=== PATIENT | male | born 2000 | race Caucasian/White ===

== ENCOUNTER 2021-10-21 15:26 | Inpatient (IN) ==
[2021-10-21 16:02] LABS: Basophils # (auto) 0.03 K/uL (0-0.2); Basophils % (auto) 0.4 %; Eosinophils # (auto) 0.05 K/uL (0-0.5); Eosinophils % (auto) 0.6 %; Hematocrit (blood only) 39.6 % (42-52); Hemoglobin 13.7 g/dL (14.0-18.0); Immature Granulocytes # (auto) 0.02 K/uL (0.00-0.02); Immature Granulocytes % (auto) 0.2 %; Lymphocytes # (auto) 1.88 K/uL (1.2-3.4); Mean Corpuscular Hemoglobin 30.4 pg (25-34); Mean Corpuscular Hgb Conc 34.6 g/dL (32-36); Mean Platelet Volume 9.9 fL (7.4-10.4); Monocytes # (auto) 0.53 K/uL (0.11-0.59); Monocytes % (auto) 6.5 %; Neutrophils # (auto) 5.68 K/uL (1.4-6.5); Neutrophils % (auto) 69.3 %; Platelet Count 268 K/uL (130-400); RDW Coefficient of Variation 11.8 % (11.5-14.5); RDW Standard Deviation 37.6 fL (36.4-46.3); White Blood Count 8.19 K/uL (4.8-10.8)
--- NOTE | 2021-10-21 16:23 | XRay Report ---
SINGLE VIEW CHEST CLINICAL HISTORY: Atypical chest pain. FINDINGS: 2 AP, portable, upright chest radiographs are obtained. No prior studies are available for comparison at the time of dictation. The cardiomediastinal silhouette is unremarkable. The lungs and pleural spaces are clear. There is a moderate right-sided pneumothorax with approximately 5 cm of ap ical pleural separation. No left-sided pneumothorax is seen. The trachea is midline. The bony thorax is grossly intact. IMPRESSION: Moderate right apical pneumothorax. ACT 112: Negative or not required by law. Electronically signed by: Fabricio Keenan M.D. 10/21/2021 4:20 PM
[2021-10-21 16:24] LABS: Troponin I High Sensitivity < 2.3 pg/ml (0-20)
[2021-10-21 16:30] LABS: Alanine Aminotransferase 16 U/L (7-52); Albumin Level 4.8 gm/dl (3.4-5.0); Alkaline Phosphatase 51 U/L (34-104); Anion Gap 8 (3-11); Aspartate Aminotransferase 19 U/L (13-39); BUN Creatinine Ratio 9.3 (10-20); Bilirubin,Total 0.7 mg/dl (0.2-1.0); Blood Urea Nitrogen 9 mg/dl (6-23); Calcium 9.3 mg/dl (8.5-10.1); Carbon Dioxide 26 mmol/L (21-32); Chloride 100 mmol/L (98-107); Creatinine Clr Calc Pharmacy 116.7 ml/min; Est GFR (African American) 129.7 ml/min; Est GFR (Non-African American) 111.9 ml/min; Globulin 2.4 gm/dl (2.5-4.0); Glucose 92 mg/dl (70-99(Fasting)); Lipase 19 U/L (11-82); Potassium 3.2 mmol/L (3.5-5.1); Sodium 134 mmol/L (136-145); Total Protein 7.2 gm/dl (6.0-8.3)
--- NOTE | 2021-10-21 16:53 | Emergency Department Note ---
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 Chest x-ray obtained prior to my initial evaluation I was done in triage shows evidence of a moderate-sized right-sided apical pneumothorax. On my initial assessment here in the ED the patient is saturating well on room air, he is hemodynamically stable, he admits to some very mild left-sided chest discomfort with some shortness of breath but otherwise appears nontoxic on my initial evaluation. ROS: -Pulmonary: Shortness of breath *10 point review systems was conducted and is otherwise negative unless stated above *Outpatient medications and allergy history reviewed PE: General: Alert, NAD, slender build HEENT: Normocephalic, atraumatic Eyes: Extraocular eye movement is intact, no scleral erythema Pulmonary: Diminished breath sounds on the right side without wheezing or crackles Cardio: Regular rate and rhythm GI: Abdomen is soft, nontender : No suprapubic tenderness MSK: No evidence of trauma or malformation of the extremities, no edema Skin: No evidence of rash Neuro: Alert, no focal deficits Psychiatric: Cooperative quality assurance monitor body: - An order was placed for continuous cardiac monitoring - Patient was noted to be in sinus rhythm with rate of 80 EKG: Rate: 78 Rhythm: Normal sinus rhythm Intervals: Within normal limits ST changes: No ST elevation Time: 1534 Chest tube placement: -Written consent was obtained at the bedside following discussion of risk/ benefit of procedure with the patient. -Patient was sterilely prepped and draped at the bedside using chlorhexidine at the 2-3rd IC space of the midclavicular line of the right chest. -Local anesthesia was applied with 2% lidocaine without epinephrine. -Small incision was made with a #11 blade, Thora vent catheter with trocar was advanced at the second/third intercostal space at the midclavicular line of the right chest until release of air achieved with upward movement of the red diaphragm. -Catheter was advanced over the trocar, trocar was removed, Thora vent device was sealed to the patient's chest wall. -Follow-up chest x-ray shows appropriate positioning of Thora vent in addition t o improvement in the size of the pneumothorax. -Patient was noted to have had a vagal type event with an episode of vomiting during the procedure, he was given a fluid bolus, he had hypotension in the 80s systolic however this improved with fluid bolus as did his nausea, patient otherwise tolerated the procedure well. Patient remained otherwise hemodynamically stable on the monitor in the hours following the procedure here in the ED while awaiting admission. Medical Decision Making: Patient presented to the emergency department with a spontaneous pneumothorax that developed earlier today. Chest x-ray shows moderate right-sided pneumothorax on arrival here to the ED. Suspect he had a ruptured bleb. Lab work is otherwise reassuring as is EKG. I discussed with on-call pulmonology, Dr. Hammond, recommended placing a Thora vent chest tube/catheter in the patient and obtaining CT imaging with overnight admission for observation and he will see the patient in the morning. I discussed this with the patient, given the size of pneumothorax I do think it is reasonable to place a Thora vent to prevent development of potential tension pneumothorax. Patient expressed an agreement understanding, signed consent for the procedure to be performed. Procedure was performed at the bedside, please see procedure note for details. Patient did have a vagal type event without losing consciousness during the procedure. An episode of vomiting, he was given IV fluids and following a dos santos sient episode of hypotension into the 80s his blood pressure did improve. He otherwise tolerated the procedure without issue. Follow-up chest x-ray shows good resolution of right-sided pneumothorax. Patient remained hemodynamically stable here in the ED otherwise, chest CT imaging was obtained that shows appropriate placement of the Thora vent catheter. Patient Thora vent/chest tube was placed to waterseal at the recommendation of pulmonology following our discussion given that there was resolution of the pneumothorax, and case was discussed with the inspector outside steam distribution hospitalist for [facility], Dr. Valdez, who accepted the patient to a monitored bed for further care and pulmonology consultation. Diagnosis: 1. Spontaneous pneumothorax, right-sided 2. Shortness of breath 3. Right-sided chest pain, acute 4. Nausea and vomiting, vasovagal event Disposition: Admission Олег Cam DO Emergency Medicine Past Med/Surg History Social History Smoking Status: Never smoker Feels Safe at Home: Yes Allergies Allergies Allergy/AdvReac Type Severity Reaction Status Date / Time amoxicillin Allergy Intermediate HIVES Verified 10/21/21 18:27 AN pollen extracts Allergy Intermediate ITCHY Verified 10/21/21 18:27 EYES, SNEEZING, CONGESTION Home Meds Home Medications Medication Instructions Recorded Confirmed estradiol 2 mg tablet 2 mg PO HS 10/21/21 10/21/21 fexofenadine 180 mg tablet 180 mg PO DAILY 10/21/21 10/21/21 spironolactone 100 mg tablet 100 mg PO HS 10/21/21 10/21/21 Results & Data (ED) Vital Signs Vital Signs - 24 hr 10/21/21 15:29 10/21/21 16:42 10/21/21 17:11 Temperature 36.6 C Temperature Source Temporal Artery Scan Pulse Rate 86 67 Respiratory Rate 18 18 Blood Pressure 140/91 138/86 Blood Pressure Mean 107 103 Pulse Oximetry 97 99 98 Oxygen Delivery Method Room Air Room Air Sepsis Recent Fever Within 48 Hours No Sepsis New/Unexplained Change in Mental Status No Sepsis Action Taken by Nursing No Action Required 10/21/21 18:00 10/21/21 18:30 10/21/21 19:00 Temperature Temperature Source Pulse Rate 78 77 81 Respiratory Rate 15 23 24 Blood Pressure 132/84 126/87 129/90 Blood Pressure Mean 100 100 103 Pulse Oximetry 100 99 100 Oxygen Delivery Method Sepsis Recent Fever Within 48 Hours Sepsis New/Unexplained Change in Mental Status Sepsis Action Taken by Nursing 10/21/21 20:00 Temperature Temperature Source Pulse Rate 106 H Respiratory Rate 21 Blood Pressure 135/99 Blood Pressure Mean 111 Pulse Oximetry 94 Oxygen Delivery Method Sepsis Recent Fever Within 48 Hours Sepsis New/Unexplained Change in Mental Status Sepsis Action Taken by Nursing Laboratory Data Result diagrams: 10/21/21 15:41 10/21/21 15:41 Lab Results 10/21/21 10/21/21 10/21/21 Range/Units 15:41 15:41 18:41 WBC 8.19 (4.8-10.8) K/uL RBC 4.50 L (4.7-6.1) M/uL Hgb 13.7 L (14.0-18.0) g/dL Hct 39.6 L (42-52) % MCV 88.0 (80-100) fL MCH 30.4 (25-34) pg MCHC 34.6 (32-36) g/dL RDW Std Deviation 37.6 (36.4-46.3) fL RDW Coeff of Kayy 11.8 (11.5-14.5) % Plt Count 268 (130-400) K/uL MPV 9.9 (7.4-10.4) fL Immature Gran % (Auto) 0.2 % Neut % (Auto) 69.3 % Lymph % (Auto) 23.0 % [place] % (Auto) 6.5 % Eos % (Auto) 0.6 % Baso % (Auto) 0.4 % Neut # (Auto) 5.68 (1.4-6.5) K/uL Lymph # (Auto) 1.88 (1.2-3.4) K/uL [place] # (Auto) 0.53 (0.11-0.59) K/uL Eos # (Auto) 0.05 (0-0.5) K/uL Baso # (Auto) 0.03 (0-0.2) K/uL Immature Gran # (Auto) 0.02 (0.00-0.02) K/uL Sodium 134 L (136-145) mmol/L Potassium 3.2 L (3.5-5.1) mmol/L Chloride 100 (98-107) mmol/L Carbon Dioxide 26 (21-32) mmol/L Anion Gap 8 (3-11) BUN 9 (6-23) mg/dl Creatinine 0.97 (0.6-1.4) mg/dl Est Cr Clr Drug Dosing 116.7 ml/min Est GFR ( Amer) 129.7 ml/min Est GFR (Non-Af Amer) 111.9 ml/min BUN/Creatinine Ratio 9.3 L (10-20) Glucose 92 (70-99(Fasting)) mg/dl Calcium 9.3 (8.5-10.1) mg/dl Total Bilirubin 0.7 (0.2-1.0) mg/dl AST 19 (13-39) U/L ALT 16 (7-52) U/L Alkaline Phosphatase 51 (34-104) U/L Troponin I High Sens < 2.3 (0-20) pg/ml Total Protein 7.2 (6.0-8.3) gm/dl Albumin 4.8 (3.4-5.0) gm/dl Globulin 2.4 L (2.5-4.0) gm/dl Albumin/Globulin Ratio 2.0 (0.9-2) Lipase 19 (11-82) U/L SARS-CoV-2, RNA, NAAT NEGATIVE (NEGATIVE) Administered Medications Discontinued Medications Sodium Chloride (Nss 1000ml) 1,000 mls @ 999 mls/hr IV .Q1H1M ONE Stop: 10/21/21 19:00 Last Infusion: 10/21/21 19:49 Dose: 0 mls/hr Documented by: [id number] Admin: 10/21/21 18:46 Dose: 999 mls/hr Documented by: [id number] Lidocaine HCl (Lidocaine 2% Local 50 Ml Vial) Confirm Administered Dose 50 ml .ROUTE .STK-MED ONE Stop: 10/21/21 17:01 Last Admin: 10/21/21 17:09 Dose: 50 ml Documented by: [id number] Morphine Sulfate (Morphine Sulfate 2 Mg/Ml Carp) 2 mg IV NOW STA Stop: 10/21/21 18:01 Last Admin: 10/21/21 18:46 Dose: 2 mg Documented by: [id number] Ondansetron HCl (Ondansetron Inj 2 Mg/Ml 2 Ml Vial) 4 mg IV NOW STA Stop: 10/21/21 18:01 Last Admin: 10/21/21 18:46 Dose: 4 mg Documented by: [id number] Imaging Data Radiologist's Impression: Chest X-Ray 10/21/21 15:32 SINGLE VIEW CHEST CLINICAL HISTORY: Atypical chest pain. FINDINGS: 2 AP, portable, upright chest radiographs are obtained. No prior studies are available for comparison at the time of dictation. The cardiomediastinal silhouette is unremarkable. The lungs and pleural spaces are clear. There is a moderate right-sided pneumothorax with approximately 5 cm of apical pleural separation. No left-sided pneumothorax is seen. The trachea is midline. The bony thorax is grossly intact. IMPRESSION: Moderate right apical pneumothorax. ACT 112: Negative or not required by law. Electronically signed by: Fabricio Keenan M.D. 10/21/2021 4:20 PM Chest X-Ray 10/21/21 17:46 SINGLE VIEW CHEST CLINICAL HISTORY: Pneumothorax status post chest tube placement FINDINGS: An AP, portable, upright chest radiograph is compared to study performed earlier the same day 10/22/2019. The cardiomediastinal silhouette is unremarkable. A right-sided chest tube has been placed. There is only trace residual right apical pneumothorax with 5 mm of apical pleural separation. The lungs are otherwise clear. The bony thorax is grossly intact. IMPRESSION: 1. A right-sided chest tube has been placed with only trace residual right apical pneumothorax. 2. The lungs are otherwise clear. ACT 112: Negative or not required by law. Electronically signed by: Fabricio Keenan M.D. 10/21/2021 5:[address] 10/21/21 17:50 CT SCAN OF THE CHEST WITHOUT IV CONTRAST CLINICAL HISTORY: Pneumothorax. COMPARISON STUDY: Chest x-rays performed the same day 10/21/2021. TECHNIQUE: CT scan of the thorax was performed from the thoracic inlet to the upper abdomen. Images are reviewed in the axial, sagittal, and coronal planes. IV contrast was not administered for this examination as per the referring clinician. A dose lowering technique was utilized adhering to the principles of ALARA. The examination is degraded by streak artifact from the right arm which could not be related above the chest. CT DOSE: 228.88 mGy.cm FINDINGS: Thyroid: Imaged portions of the thyroid gland are normal in size and attenuation. Thoracic aorta: The thoracic aorta is normal in caliber and demonstrates standard 3-vessel arch anatomy. Heart: The heart is normal in size and without pericardial effusion. Lungs and pleural spaces: A chest tube enters anteriorly between the right first and second ribs. The tip is located in the lateral pleural space in the right upper lobe. There is a small residual right atypical to basilar pneumothorax there is trace right pleural effusion and dependent atelectasis. Numerous tiny blebs are present at both apices. These measure up to 1 cm. The left lung is clear with no left-sided pneumothorax. The trachea and central airways are patent. Mediastinum: There is no mediastinal lymphadenopathy. Patricia: Not well assessed without IV contrast. Axillae: There is no axillary lymphadenopathy. Upper abdomen: Partially visualized upper abdominal viscera is within normal limits. Skeletal structures: No lytic or blastic bony lesions are seen. IMPRESSION: 1. There is a small residual right apical to basilar pneumothorax with a chest tube in place as above. 2. Numerous tiny blebs are present at both apices. 3. Trace right pleural effusion. 4. The lungs are otherwise clear. ACT 112: Negative or not required by law. Electronically signed by: Fabricio Keenan M.D. 10/21/2021 8:08 PM Discharge Plan Visit Data Chief Complaint: Shortness of Breath/Dyspnea Stated Complaint: SHORTNESS OF BREATH, CAN'T TAKE DEEP BREATH ED Provider: Олег Cam Discharge Problem: Pneumothorax Forms Stand Alone Forms: [facility] Prescriptions Prescriptions: No Action spironolactone 100 mg tablet 100 mg PO HS RF: 0 fexofenadine [Simin] 180 mg Tablet 180 mg PO DAILY RF: 0 estradiol 2 mg tablet 2 mg PO HS RF: 0 Referrals Referrals: PCP,NO [Primary Care Provider] - Discharge Problem: Pneumothorax Qualifiers: Pneumothorax type: spontaneous, primary Qualified Code(s): J93.11 - Primary spontaneous pneumothorax
[2021-10-21] MEDS ORDERED: LIDOCAINE 2% LOCAL 50 ML VIAL ONE (17:00)
[2021-10-21] MEDS ORDERED: SODIUM CHLORIDE 0.9% 1000ML 1,000 ML IV ONE (18:00)
[2021-10-21] MEDS ORDERED: ONDANSETRON INJ 2 MG/ML 2 ML VIAL IV STA (18:00)
[2021-10-21] MEDS ORDERED: MoRPHine SULFATE 2 MG/ML CARP IV STA (18:00)
--- NOTE | 2021-10-21 18:01 | XRay Report ---
SINGLE VIEW CHEST CLINICAL HISTORY: Pneumothorax status post chest tube placement FINDINGS: An AP, portable, upright chest radiograph is compared to study performed earlier the same d ay 10/22/2019. The cardiomediastinal silhouette is unremarkable. A right-sided chest tube has been yuniel segundo. There is only trace residual right apical pneumothorax with 5 mm of apical pleural separation. T he lungs are otherwise clear. The bony thorax is grossly intact. IMPRESSION: 1. A right-sided chest tube has been placed with only trace residual right apical pneumothorax. 2. The lungs are otherwise clear. ACT 112: Negative or not required by law. Electronically signed by: Fabricio Keenan M.D. 10/21/2021 5:59 PM
--- NOTE | 2021-10-21 18:43 | Electrocardiogram Report ---
Test Reason : Blood Pressure : / mmHG Vent. Rate : 078 BPM Atrial Rate : 078 BPM P-R Int : 150 ms QRS Dur : 084 ms QT Int : 380 ms P-R-T Axes : 046 082 065 degrees QTc Int : 433 ms Normal sinus rhythm with sinus arrhythmia Normal ECG No previous ECGs available Confirmed by Angelito Sutherland ([id number]) on 10/21/2021 6:42:58 PM Referred By: Confirmed By:Brandon Sutherland
--- NOTE | 2021-10-21 20:10 | CT Scan Report ---
CT SCAN OF THE CHEST WITHOUT IV CONTRAST CLINICAL HISTORY: Pneumothorax. COMPARISON STUDY: Chest x-rays performed the same day 10/21/2021. TECHNIQUE: CT scan of the thorax was performed from the thoracic inlet to the upper abdomen. Images are reviewed in the axial, sagittal, and coronal planes. IV contrast was not administered for this ex amination as per the referring clinician. A dose lowering technique was utilized adhering to the bhavin nciples of SAHRA. The examination is degraded by streak artifact from the right arm which could not b e related above the chest. CT DOSE: 228.88 mGy.cm FINDINGS: Thyroid: Imaged portions of the thyroid gland are normal in size and attenuation. Thoracic aorta: The thoracic aorta is normal in caliber and demonstrates standard 3-vessel arch anato my. Heart: The heart is normal in size and without pericardial effusion. Lungs and pleural spaces: A chest tube enters anteriorly between the right first and second ribs. The tip is located in the lateral pleural space in the right upper lobe. There is a small residual right atypical to basilar pneumothorax there is trace right pleural effusion and dependent atelectasis. Nu merous tiny blebs are present at both apices. These measure up to 1 cm. The left lung is clear with n o left-sided pneumothorax. The trachea and central airways are patent. Mediastinum: There is no mediastinal lymphadenopathy. Patricia: Not well assessed without IV contrast. Axillae: There is no axillary lymphadenopathy. Upper abdomen: Partially visualized upper abdominal viscera is within normal limits. Skeletal structures: No lytic or blastic bony lesions are seen. IMPRESSION: 1. There is a small residual right apical to basilar pneumothorax with a chest tube in place as above . 2. Numerous tiny blebs are present at both apices. 3. Trace right pleural effusion. 4. The lungs are otherwise clear. ACT 112: Negative or not required by law. Electronically signed by: Fabricio Keenan M.D. 10/21/2021 8:08 PM
[2021-10-21] MEDS ORDERED: POLYETHYLENE (MIRALAX) 17 GM PACK PO PRN (23:56)
[2021-10-21] MEDS ORDERED: ONDANSETRON INJ 2 MG/ML 2 ML VIAL IV PRN (23:56)
[2021-10-21] MEDS ORDERED: POTASSIUM CHLORIDE CRTAB 20 MEQ TABCR PO STA (23:56)
--- NOTE | 2021-10-22 00:25 | History and Physical Report ---
DATE OF ADMISSION: 10/21/2021. CHIEF COMPLAINT: Pneumothorax. HISTORY OF PRESENT ILLNESS: This is a 21-year-old male with no significant past medical history, presents with shortness of breath. The patient was hiking when he felt short of breath and chest discomfort, and was brought in here and found to have right apical pneumothorax. Never had these in the past. The patient is status post chest tube in the ER. Repeat CT scan shows small residual right apical pneumothorax with chest tube in place. ER talked to pulmonary, wanted to keep him overnight in the hospital and repeat chest x-ray in the a.m. Currently, the patient has some pain at the chest tube site, shortness of breath is improved. No other complaints. Denies any headache. No blurred visions, no earache, no runny nose, no sore throat, no cough, no fevers. No nausea, no abdominal pain, normal bowel and bladder movements. Otherwise, active. ALLERGIES: AMOXICILLIN, POLLEN EXTRACTS. PAST MEDICAL HISTORY: None. PAST SURGICAL HISTORY: unknown FAMILY HISTORY: Father from cardiomyopathy. SOCIAL HISTORY: No smoking, no alcohol, no drug use. REVIEW OF SYSTEMS: As per HPI. Rest of review of systems is negative. PHYSICAL EXAMINATION: GENERAL: The patient is of moderate build, not in acute distress. VITAL SIGNS: Temperature 36.6, pulse 93, respiratory rate 20, blood pressure 145/85, oxygen 100% on room air. HEENT: Pupils equal, round and reactive to light. Oral mucosa moist. NECK: No JVD, no neck masses. CARDIOVASCULAR: S1 and S2 heard. Regular rate and rhythm. No murmur, no gallop. RESPIRATORY SYSTEM: Normal AP diameter. No accessory muscle use. No wheezing, no crackles. ABDOMEN: Soft. Bowel sounds are present, nontender, no distention. CENTRAL NERVOUS SYSTEM: Cranial nerves II through XII are grossly intact, nonfocal. EXTREMITIES: No edema, no erythema. LABORATORY: WBC 8.1, hemoglobin 13.7, hematocrit 39.6, platelets 268. Sodium 134, potassium 3.2, chloride 100, bicarbonate 26, BUN 9, creatinine 0.9, serum glucose 92, calcium 9.3, total bilirubin 0.7, AST 19, ALT 16, alkaline phosphatase 51, lipase 19. SARS-CoV-2 rapid test negative. IMAGING: Chest x-ray: Moderate right apical pneumothorax. Repeat chest x-ray post chest tube placement, right-sided chest tube is in place with only trace residual right apical pneumothorax. Lungs are otherwise clear. Chest CT small residual right apical to basilar pneumothorax with chest tube in place, numerous tiny blebs are present at both apices. Trace right pleural effusion. EKG: Normal sinus rhythm with sinus arrhythmia at a rate of 78, no acute ST changes seen. ASSESSMENT AND PLAN: This is a 21-year-old male who presents with right pneumothorax. 1. Right apical pneumothorax, status post chest tube, reduced in size of pneumothorax on post chest tube imaging. Pulmonary was notified . Will monitor in the hospital. Repeat chest x-ray in the a.m. Consult pulmonary for further recommendations. 2. Deep venous thrombosis prophylaxis: SCDs. DISPOSITION: Expect to discharge home and follow with family doctor. Job ID: [id number] [facility]
[2021-10-22] MEDS: estradioL 1 MG TAB PO SCH ×2 (00:46→21:52)
[2021-10-22] MEDS: SPIRONOLACTONE 100 MG TAB PO SCH ×2 (00:47→21:52)
--- NOTE | 2021-10-22 07:33 | XRay Report ---
XR chest 1V portable CLINICAL HISTORY: pneumothorax COMPARISON STUDY: Chest radiograph October 21, 2021 at 5:[address] October 21, 2021. FINDINGS: Right pleural catheter remains in place. Small to moderate right pneumothorax has increased in size since prior chest radiograph and chest CT. Pleural separation measures 2.8 cm. This has decr eased when compared to initial chest radiograph. There is no left pneumothorax. No consolidation to s uggest pneumonia. Cardiac size is normal. Mediastinal contours are normal. IMPRESSION: Increase in size of a small to moderate right pneumothorax since prior chest radiograph and chest CT. Right pleural catheter in place. ACT 112: Negative or not required by law. Electronically signed by: Nigel Lozano M.D. 10/22/2021 7:31 AM
[2021-10-22] MEDS: FEXOFENADINE HCL 180 MG TAB PO SCH (09:36)
--- NOTE | 2021-10-22 09:55 | Pulmonary Consultation ---
Date of Consultation October 22, 2021 Assessment & Plan (1) Spontaneous pneumothorax: (2) Chest pain: CT chest 10/21/2021 personally reviewed: Bilateral apical blebs appreciated Right-sided pneumothorax persists with chest tube in place No mediastinal lymphadenopathy -- Spontaneous pneumothorax S/p Thora vent placement 10/21/2021 Continue with chest tube Patient is at high risk for recurrent pneumothoraces given the first instance as well as appreciation of blebs in bilateral apices. Patient should avoid flying for at least 2 weeks. Patient should not pursue scuba diving Plan: Chest x-ray from today showed worsening of the right-sided pneumothorax Patient was on waterseal, I will put the patient on -20 continuous suction, will repeat chest x-ray later today. No airleak appreciated at the time of examination I will put the patient on nonrebreather to help resolve the pneumothorax Repeat chest x-ray in the morning Case was discussed with Dr. Solis Please note the above document was generated using voice recognition software. It may contain grammatical, syntax or spelling errors.Any formal questions or concerns about the content, text or information contained within the body of this dictation should be directly addressed to the provider for clarification. History of Present Illness Attending Physician: Omid Solis MD History of Present Illness 21-year-old male with no significant past medical history presents to the hospital with complaints of right-sided chest pain and shortness of breath He was found to have pneumothorax on the right side for which he had a Thora vent placed in the ER. Pulmonary were consulted for further management. The time of examinations patient mother was in the room. Patient was hiking when he started to have symptoms. Denies any history of trauma. This is the first instance where he had any spontaneous pneumothorax. No childhood history of significant pulmonary infection. No family history of spontaneous pneumothoraces. No fever or chills Does complain of pain when he takes deep breath and when he is coughing at the chest tube site. No nausea or vomiting. Social history: Non-smoker, no vaping No personal history of asthma. Strong family history of asthma in sister as well as mother Allergies Allergy/AdvReac Type Severity Reaction Status Date / Time amoxicillin Allergy Intermediate HIVES Verified 10/21/21 18:27 AN pollen extracts Allergy Intermediate ITCHY Verified 10/21/21 18:27 EYES, SNEEZING, CONGESTION Home Medications Medication Instructions Recorded Confirmed Type estradiol 2 mg tablet 2 mg PO HS 10/21/21 10/21/21 History fexofenadine 180 mg tablet 180 mg PO DAILY 10/21/21 10/21/21 History spironolactone 100 mg tablet 100 mg PO 10/21/21 10/21/21 History Patient History Social History Smoking Status: Never smoker Second Hand Exposure: No; Do You Dip or Chew Tobacco: No; Hx Alcohol Use: No Hx Substance Use: No Preferred Language: Belarusian Communication Ability: Effective Cafe Lead Required: No Beliefs That Will Affect Care: None Current Living Situation: Alone Other Information That Helps Us Care for You: No Feels Safe at Home: Yes Safety Concerns: Feels Safe At This Time Assistive Devices: None Review of Systems Review of Systems: All systems reviewed & are unremarkable except as noted in HPI & below Physical Exam Physical Exam: Constitutional: No acute distress HEENT: EOMI, PERRLA Respiratory system: Decreased air entry bilaterally, no wheeze, no rhonchi, no crackles CVS: S1-S2 positive, no murmurs or gallops Abdomen: Soft, nontender, nondistended, positive bowel sounds x4 Extremities: +2 pulses bilaterally radialis/ dorsalis pedis, no cyanosis, no edema Neuro: Awake alert oriented x3 Psych: Normal mood and affect G/U: No Mccarty Skin: no rashes, warm and dry Lymphatic: no cervical or axillary lymphadenopathy Results & Data Results & Data ([facility]) Vital Signs (Past 12 Hours) Vital Signs Temp Pulse Pulse Resp BP BP Pulse Ox 10/22/21 09:00 84 20 123/91 100 10/22/21 08:00 82 22 127/78 98 10/22/21 04:07 53 L 18 120/76 98 10/22/21 02:48 10/22/21 02:47 64 17 123/72 96 10/22/21 01:18 36.8 C 66 18 116/70 99 10/22/21 01:14 56 L 18 116/70 98 10/21/21 23:56 74 18 137/76 98 10/21/21 22:00 93 H 20 145/85 H 100 Pulse Ox 10/22/21 09:00 10/22/21 08:00 10/22/21 04:07 10/22/21 02:48 96 10/22/21 02:47 10/22/21 01:18 10/22/21 01:14 10/21/21 23:56 10/21/21 22:00 Laboratory Results 10/21/21 15:41 10/21/21 15:41 PG Care Time/CCT Total # of Minutes Spent Total Time Spent with Patient: Total time spent is greater than 50% in coordination of care (as documented) at patient's floor/unit and/or counseling patient: Coding Level of Care Code 35011 Initial Inpt Care Lvl 3 Diagnoses Spontaneous pneumothorax J93.83 Chest pain R07.9
--- NOTE | 2021-10-22 15:38 | Hospitalist Progress Note ---
Date of Service October 22, 2021 Assessment & Plan (1) Spontaneous pneumothorax: Plan: Patient is a 21 yr male who presents with right pneumothorax. Right apical Spontaneous Pneumothorax S/P Chest tube --Chest CT:There is a small residual right apical to basilar pneumothorax with a chest tube in place as above. Numerous tiny blebs are present at both apices. Trace right pleural effusion. The lungs are otherwise clear. Pain Control Appreciate Pulmonology Input Continue chest tube Supplemental Oxygen Plan for repeat CXR tomorrow DVT Px: SCDs Code Status Full Code Admission and Anticipated Discharge Date Admission Date: October 21, 2021 Subjective Patient is seen and examined at bedside States having mild soreness at chest tube site Also reports having minimal discomfort with deep breathing Denies any nausea, vomiting, abdominal pain, dizziness Family at bedside Offers no other complaints Review of Systems Review of Systems: All systems reviewed & are unremarkable except as noted in Subjective Physical Exam Physical Exam: Physical Exam: Vitals signs as noted above General Appearance:Thin, no apparent distress Head: normocephalic, Atraumatic Eyes: normal inspection, EOMI Neck: supple, Trachea midline Respiratory/Chest: Decreased breath sounds, CTA, No accessory muscle use Cardiovascular: S1, S2, No murmur Abdomen/GI:Soft, Non tender, Bowel sounds present Extremities/Musculoskeletal:normal inspection, no edema Neurologic/Psych:AAOX3, grossly no focal neurological deficits Skin: normal color, warm Results & Data Results & Data ([facility]) Vital Signs (Past 12 Hours) Vital Signs Pulse Resp BP Pulse Ox 10/22/21 09:00 84 20 123/91 100 10/22/21 08:00 82 22 127/78 98 10/22/21 04:07 53 L 18 120/76 98 Laboratory Results Short CBC 10/21/21 Range/Units 15:41 WBC 8.19 (4.8-10.8) K/uL Hgb 13.7 L (14.0-18.0) g/dL Hct 39.6 L (42-52) % Plt Count 268 (130-400) K/uL BMP 10/21/21 15:41 Sodium 134 L Potassium 3.2 L Chloride 100 Carbon Dioxide 26 BUN 9 Creatinine 0.97 Glucose 92 Calcium 9.3 Liver Function 10/21/21 Range/Units 15:41 Total Bilirubin 0.7 (0.2-1.0) mg/dl AST 19 (13-39) U/L ALT 16 (7-52) U/L Alkaline Phosphatase 51 (34-104) U/L Albumin 4.8 (3.4-5.0) gm/dl
--- NOTE | 2021-10-22 15:47 | XRay Report ---
SINGLE VIEW CHEST CLINICAL HISTORY: Pneumothorax status post chest tube placement FINDINGS: An AP, portable, upright chest radiograph is compared to study performed earlier the same d ay 10/23/2019. The cardiomediastinal silhouette is unremarkable. A right-sided chest tube is unchanged in position. There is a small residual right apical pneumothorax with approximately 1 cm of apical p leural separation. The lungs are otherwise clear. The bony thorax is grossly intact. IMPRESSION: 1. A right-sided chest tube is unchanged in position. A small residual right apical pneumothorax has decreased in size from earlier today. 2. The lungs are otherwise clear. ACT 112: Negative or not required by law. Electronically signed by: Fabricio Keenan M.D. 10/22/2021 3:46 PM
[2021-10-22] MEDS: ACETAMINOPHEN 325 MG TAB PO PRN (21:51)
[2021-10-23 07:21] LABS: Hematocrit (blood only) 42.8 % (42-52); Hemoglobin 14.5 g/dL (14.0-18.0); Mean Corpuscular Hemoglobin 30.6 pg (25-34); Mean Corpuscular Hgb Conc 33.9 g/dL (32-36); Mean Corpuscular Volume 90.3 fL (80-100); Mean Platelet Volume 10.1 fL (7.4-10.4); Platelet Count 268 K/uL (130-400); RDW Coefficient of Variation 12.1 % (11.5-14.5); RDW Standard Deviation 39.7 fL (36.4-46.3); Red Blood Count 4.74 M/uL (4.7-6.1); White Blood Count 6.46 K/uL (4.8-10.8)
[2021-10-23 07:47] LABS: BUN Creatinine Ratio 12.6 (10-20); Calcium 9.6 mg/dl (8.5-10.1); Creatinine Clr Calc Pharmacy 118.9 ml/min; Est GFR (Non-African American) 114.8 ml/min; Magnesium 1.9 mg/dl (1.7-2.4); Potassium 4.3 mmol/L (3.5-5.1)
[2021-10-23] MEDS: FEXOFENADINE HCL 180 MG TAB PO SCH (07:53)
--- NOTE | 2021-10-23 08:21 | Pulmonology Progress Note ---
Date of Service October 23, 2021 Assessment & Plan (1) Spontaneous pneumothorax: (2) Chest pain: Plan: CT chest 10/21/2021 personally reviewed: Bilateral apical blebs appreciated Right-sided pneumothorax persists with chest tube in place No mediastinal lymphadenopathy -- Spontaneous pneumothorax S/p Thora vent placement 10/21/2021 Continue with chest tube Patient is at high risk for recurrent pneumothoraces given the first instance as well as appreciation of blebs in bilateral apices. Patient should avoid flying for at least 2 weeks. Patient should not pursue scuba diving Plan: Okay to discontinue nonrebreather Continue with chest tube. I increase the suction to -30 If tomorrow a.m. chest x-ray does not show any significant change in pneumothorax, we will try to clamp the tube and repeat a chest x-ray later on. Case was discussed with Dr. Solis Please note the above document was generated using voice recognition software. It may contain grammatical, syntax or spelling errors.Any formal questions or concerns about the content, text or information contained within the body of this dictation should be directly addressed to the provider for clarification. Admission and Anticipated Discharge Date Admission Date: October 21, 2021 Subjective Patient seen and examined at bedside. No acute distress, noted restraints overnight Discomfort at the site of the chest tube still persists. Does complain of pain when he is taking deep breath on the right side. No nausea vomiting Fair appetite No headache Review of Systems Review of Systems: All systems reviewed & are unremarkable except as noted in Subjective Physical Exam Physical Exam: Constitutional: No acute distress HEENT: EOMI, PERRLA Respiratory system: Decreased air entry bilaterally, no wheeze, no rhonchi, no crackles CVS: S1-S2 positive, no murmurs or gallops Abdomen: Soft, nontender, nondistended, positive bowel sounds x4 Extremities: +2 pulses bilaterally radialis/ dorsalis pedis, no cyanosis, no edema Neuro: Awake alert oriented x3 Psych: Normal mood and affect G/U: No Mccarty Skin: no rashes, warm and dry Lymphatic: no cervical or axillary lymphadenopathy Results & Data Results & Data ([facility]) Vital Signs (Past 12 Hours) Vital Signs Temp Pulse Pulse Resp BP Pulse Ox Pulse Ox 10/23/21 07:17 48 L 10/23/21 04:30 36.5 C 61 18 119/68 100 10/23/21 02:00 99 10/22/21 23:00 74 10/22/21 22:56 36.8 C 71 18 135/71 97 Laboratory Results 10/23/21 06:59 10/23/21 06:59 PG Care Time/CCT Total # of Minutes Spent Total Time Spent with Patient: Total time spent is greater than 50% in coordination of care (as documented) at patient's floor/unit and/or counseling patient: Coding Level of Care Code 70419 Subseq Hosp Care Lvl 2 Diagnoses Spontaneous pneumothorax J93.83 Chest pain R07.9
--- NOTE | 2021-10-23 09:17 | XRay Report ---
XR chest 1V portable CLINICAL HISTORY: Pneumothorax TECHNIQUE: Single frontal radiograph of the chest was obtained. Comparison: Comparison is made to chest radiograph 10/22/2021 FINDINGS: Stable appearance of right chest tube. The cardiomediastinal silhouette is normal. A right pneumothor ax measures 8 mm in greatest diameter, decreased from prior exam. IMPRESSION: Interval decrease in size of previously noted pneumothorax. ACT 112: Negative or not required by law. Electronically signed by: Yoseph Wilson M.D. 10/23/2021 9:16 AM
--- NOTE | 2021-10-23 18:58 | Hospitalist Progress Note ---
Date of Service October 23, 2021 Assessment & Plan (1) Spontaneous pneumothorax: Plan: Patient is a 21 yr male who presents with right pneumothorax. Right apical Spontaneous Pneumothorax S/P Chest tube --Chest CT:There is a small residual right apical to basilar pneumothorax with a chest tube in place as above. Numerous tiny blebs are present at both apices. Trace right pleural effusion. The lungs are otherwise clear. Pain Control Appreciate Pulmonology Input Continue chest tube Supplemental Oxygen (nonrebreather) DCed Plan for repeat CXR tomorrow Patient should avoid flying for at least 2 weeks, no scuba diving recommended Plan for chest tube clamped tomorrow DVT Px: SCDs Code Status Full Code Admission and Anticipated Discharge Date Admission Date: October 21, 2021 Subjective Patient seen and examined at bedside. No acute distress, noted restraints overnight Discussed with pulmonology today States having mild pleuritic pain with deep inspiration No new complaints Family at bedside Review of Systems Review of Systems: All systems reviewed & are unremarkable except as noted in Subjective Physical Exam Physical Exam: Physical Exam: Vitals signs as noted above General Appearance:Thin, no apparent distress Head: normocephalic, Atraumatic Eyes: normal inspection, EOMI Neck: supple, Trachea midline Respiratory/Chest: Decreased breath sounds, CTA, No accessory muscle use Cardiovascular: S1, S2, No murmur Abdomen/GI:Soft, Non tender, Bowel sounds present Extremities/Musculoskeletal:normal inspection, no edema Neurologic/Psych:AAOX3, grossly no focal neurological deficits Skin: normal color, warm Results & Data Results & Data ([facility]) Vital Signs (Past 12 Hours) Vital Signs Temp Pulse Pulse Resp BP Pulse Ox 10/23/21 18:30 36.4 C L 61 18 107/67 96 10/23/21 16:06 36.7 C 60 18 119/64 94 10/23/21 14:52 64 10/23/21 11:42 36.4 C L 73 18 131/80 100 10/23/21 08:35 36.3 C L 61 19 124/69 100 10/23/21 07:17 48 L Laboratory Results Short CBC 10/23/21 Range/Units 06:59 WBC 6.46 (4.8-10.8) K/uL Hgb 14.5 (14.0-18.0) g/dL Hct 42.8 (42-52) % Plt Count 268 (130-400) K/uL BMP 10/23/21 06:59 Sodium 137 Potassium 4.3 D Chloride 104 Carbon Dioxide 28 BUN 12 Creatinine 0.95 Glucose 97 Calcium 9.6
[2021-10-23] MEDS: ACETAMINOPHEN 325 MG TAB PO PRN (19:29)
[2021-10-23] MEDS: estradioL 1 MG TAB PO SCH (21:00)
[2021-10-23] MEDS: SPIRONOLACTONE 100 MG TAB PO SCH (21:00)
[2021-10-24 07:53] LABS: Hematocrit (blood only) 41.4 % (42-52); Hemoglobin 14.4 g/dL (14.0-18.0); Mean Corpuscular Hemoglobin 31.3 pg (25-34); Mean Corpuscular Hgb Conc 34.8 g/dL (32-36); Mean Platelet Volume 10.1 fL (7.4-10.4); Platelet Count 274 K/uL (130-400); RDW Coefficient of Variation 11.8 % (11.5-14.5); White Blood Count 6.79 K/uL (4.8-10.8)
[2021-10-24 08:12] LABS: BUN Creatinine Ratio 14.6 (10-20); Calcium 9.6 mg/dl (8.5-10.1); Creatinine Clr Calc Pharmacy 120.6 ml/min; Est GFR (African American) 142.7 ml/min; Est GFR (Non-African American) 123.1 ml/min
[2021-10-24] MEDS: FEXOFENADINE HCL 180 MG TAB PO SCH (08:44)
--- NOTE | 2021-10-24 08:59 | XRay Report ---
SINGLE VIEW CHEST CLINICAL HISTORY: Follow-up pneumothorax. FINDINGS: An AP, portable, upright chest radiograph is compared to study dated 10/23/2021. The cardiom ediastinal silhouette is unremarkable. A right-sided chest tube is unchanged in position. There is a only trace residual right apical pneumothorax. The lungs are otherwise clear. The bony thorax is bayron sly intact. IMPRESSION: 1. A right-sided chest tube is unchanged in position. There is only trace residual right apical pneum othorax. 2. The lungs are otherwise clear. ACT 112: Negative or not required by law. Electronically signed by: Fabricio Keenan M.D. 10/24/2021 8:58 AM
--- NOTE | 2021-10-24 09:27 | Pulmonology Progress Note ---
Date of Service October 24, 2021 Assessment & Plan (1) Spontaneous pneumothorax: (2) Chest pain: Plan: CT chest 10/21/2021 personally reviewed: Bilateral apical blebs appreciated Right-sided pneumothorax persists with chest tube in place No mediastinal lymphadenopathy -- Spontaneous pneumothorax S/p Thora vent placement 10/21/2021 Continue with chest tube Patient is at high risk for recurrent pneumothoraces given the first instance as well as appreciation of blebs in bilateral apices. Patient should avoid flying for at least 2 weeks. Patient should not pursue scuba diving Plan: Chest x-ray from today does not show any significant change compared to yesterday. Very small pneumo appreciated at the right apex. I clamped the chest tube when I saw the patient. I will repeat the chest x-ray in 4 hours. If on the repeat chest x-ray there is no worsening of the pneumothorax then we will remove the chest tube. I did advise the patient that he is always at risk for pneumothoraces in the future. And he should be aware of any symptoms that he had prior to this visit and should seek medical attention if it reoccurs. Case was discussed with Dr. Solis Please note the above document was generated using voice recognition software. It may contain grammatical, syntax or spelling errors.Any formal questions or concerns about the content, text or information contained within the body of this dictation should be directly addressed to the provider for clarification. Admission and Anticipated Discharge Date Admission Date: October 21, 2021 Subjective Patient seen and examined at bedside. No acute distress, no events overnight. Mild chest discomfort at the site of the chest tube. No shortness of breath No headache, no dizziness, no palpitation Fair appetite. Review of Systems Review of Systems: All systems reviewed & are unremarkable except as noted in Subjective Physical Exam Physical Exam: Constitutional: No acute distress HEENT: EOMI, PERRLA Respiratory system: Decreased air entry bilaterally, no wheeze, no rhonchi, no crackles CVS: S1-S2 positive, no murmurs or gallops Abdomen: Soft, nontender, nondistended, positive bowel sounds x4 Extremities: +2 pulses bilaterally radialis/ dorsalis pedis, no cyanosis, no edema Neuro: Awake alert oriented x3 Psych: Normal mood and affect G/U: No Mccarty Skin: no rashes, warm and dry Lymphatic: no cervical or axillary lymphadenopathy Results & Data Results & Data ([facility]) Vital Signs (Past 12 Hours) Vital Signs Temp Pulse Resp BP Pulse Ox 10/24/21 08:33 36.7 C 71 18 122/75 98 10/24/21 03:10 36.6 C 72 16 122/76 98 10/23/21 23:00 36.7 C 71 20 99/61 L 94 Laboratory Results 10/24/21 07:05 10/24/21 07:05 PG Care Time/CCT Total # of Minutes Spent Total Time Spent with Patient: Total time spent is greater than 50% in coordination of care (as documented) at patient's floor/unit and/or counseling patient: C[place] [address] Subseq Hosp Care Lvl 2 Patient Type Established Diagnoses Spontaneous pneumothorax J93.83 Chest pain R07.9
--- NOTE | 2021-10-24 13:37 | XRay Report ---
XR chest 1V portable at 1:08 PM CLINICAL HISTORY: CT Clamped at 09:00. Evaluate for pneumothorax COMPARISON STUDY: 01/24/2022 at 6:58 AM TECHNIQUE: 1 view of the chest FINDINGS: Single frontal view of the chest demonstrates the cardiomediastinal silhouette to be within normal li mits. Chest tube is again seen involving the right lung. There is no evidence for interval pneumothor ax. The lungs are clear of alveolar opacities. There is no evidence for pleural effusion. There is no evidence for vascular congestion. There is no acute osseous pathology. IMPRESSION: 1. No acute cardiopulmonary disease. 2. No interval pneumothorax. ACT 112: Negative or not required by law. Electronically signed by: Fermin Erwin M.D. 10/24/2021 1:36 PM
--- NOTE | 2021-10-24 14:55 | Hospitalist Progress Note ---
Date of Service October 24, 2021 Assessment & Plan (1) Spontaneous pneumothorax: Plan: Patient is a 21 yr male who presents with right pneumothorax. Right apical Spontaneous Pneumothorax S/P Chest tube --Chest CT:There is a small residual right apical to basilar pneumothorax with a chest tube in place as above. Numerous tiny blebs are present at both apices. Trace right pleural effusion. The lungs are otherwise clear. Pain Control Appreciate Pulmonology Input Continue chest tube Patient should avoid flying for at least 2 weeks, no scuba diving recommended Chest tube clamped and repeat CXR showed persistent Pneumothorax Will repeat CXR tomorrow, If no improvement may need to transfer to Tertiary hospital for CT surgery evaluation DVT Px: SCDs Code Status Full Code Admission and Anticipated Discharge Date Admission Date: October 21, 2021 Subjective Patient is seen and examined at bedside Pleuritic pain is minimal Denies any chest pain, dizziness, nausea, abd pain Chest tube clamped today No other complaints Review of Systems Review of Systems: All systems reviewed & are unremarkable except as noted in Subjective Physical Exam Physical Exam: Physical Exam: Vitals signs as noted above General Appearance:Thin, no apparent distress Head: normocephalic, Atraumatic Eyes: normal inspection, EOMI Neck: supple, Trachea midline Respiratory/Chest: Decreased breath sounds, CTA, No accessory muscle use Cardiovascular: S1, S2, No murmur Abdomen/GI:Soft, Non tender, Bowel sounds present Extremities/Musculoskeletal:normal inspection, no edema Neurologic/Psych:AAOX3, grossly no focal neurological deficits Skin: normal color, warm Results & Data Results & Data ([facility]) Vital Signs (Past 12 Hours) Vital Signs Temp Pulse Pulse Resp BP Pulse Ox 10/24/21 11:50 36.8 C 68 17 110/62 98 10/24/21 08:33 36.7 C 71 18 122/75 98 10/24/21 08:00 45 L 10/24/21 03:10 36.6 C 72 16 122/76 98 Laboratory Results Short CBC 10/24/21 Range/Units 07:05 WBC 6.79 (4.8-10.8) K/uL Hgb 14.4 (14.0-18.0) g/dL Hct 41.4 L (42-52) % Plt Count 274 (130-400) K/uL BMP 10/24/21 07:05 Sodium 136 Potassium 4.0 Chloride 101 Carbon Dioxide 29 BUN 13 Creatinine 0.89 Glucose 95 Calcium 9.6
[2021-10-24] MEDS: ACETAMINOPHEN 325 MG TAB PO PRN (19:23)
[2021-10-24] MEDS: estradioL 1 MG TAB PO SCH (21:48)
[2021-10-24] MEDS: SPIRONOLACTONE 100 MG TAB PO SCH (21:48)
--- NOTE | 2021-10-25 08:17 | XRay Report ---
SINGLE VIEW CHEST CLINICAL HISTORY: Follow-up pneumothorax. FINDINGS: An AP, portable, upright chest radiograph is compared to studies dated 10/24/2021. The cardi omediastinal silhouette is unremarkable. A right-sided chest tube is unchanged in position. There is a a small residual right apical pneumothorax. This has decreased in size from yesterday with approxim ately 2 cm of apical pleural separation The lungs are otherwise clear. The bony thorax is grossly int act. IMPRESSION: 1. A right-sided chest tube is unchanged in position. There is a small residual right apical pneumoth orax which has decreased in size from yesterday. 2. The lungs are otherwise clear. ACT 112: Negative or not required by law. Electronically signed by: Fabricio Keenan M.D. 10/25/2021 8:16 AM
[2021-10-25] MEDS: FEXOFENADINE HCL 180 MG TAB PO SCH (09:36)
--- NOTE | 2021-10-25 12:29 | Pulmonology Progress Note ---
Date of Service October 25, 2021 Assessment & Plan (1) Spontaneous pneumothorax: (2) Chest pain: Plan: CT chest 10/21/2021 personally reviewed: Bilateral apical blebs appreciated Right-sided pneumothorax persists with chest tube in place No mediastinal lymphadenopathy -- Spontaneous pneumothorax S/p Thora vent placement 10/21/2021 On waterseal the patient's pneumothorax is getting worse, continue suction was applied on 10/22/2021 10/24/2021 chest tube was clamped which resulted in worsening pneumothorax. Continue with chest tube Patient is at high risk for recurrent pneumothoraces given the first instance as well as appreciation of blebs in bilateral apices. Patient should avoid flying for at least 2 weeks. Patient should not pursue scuba diving Plan: I had clamped the chest tube yesterday but later in the afternoon the pneumothorax increased in size. Today in the morning the pneumothorax does seem to improve compared to yesterday but there is still significant gap There is no bubbling appreciated. Continue with -20 suction Patient might need VATS surgery. Recommend transfer to tertiary center. Patient prefers [place]. Case was discussed with Dr. Solis Please note the above document was generated using voice recognition software. It may contain grammatical, syntax or spelling errors.Any formal questions or concerns about the content, text or information contained within the body of this dictation should be directly addressed to the provider for clarification. Admission and Anticipated Discharge Date Admission Date: October 21, 2021 Subjective Patient seen and examined at bedside. No acute distress, no new issues overnight. Denies any shortness of breath. Does still complain of chest tenderness at the site of the chest tube which is worse when he takes a deep breath in. No nausea vomiting No headache, no blurry vision. Good appetite. Review of Systems Review of Systems: All systems reviewed & are unremarkable except as noted in Subjective Physical Exam Physical Exam: Constitutional: No acute distress HEENT: EOMI, PERRLA Respiratory system: Decreased air entry bilaterally, no wheeze, no rhonchi, no crackles CVS: S1-S2 positive, no murmurs or gallops Abdomen: Soft, nontender, nondistended, positive bowel sounds x4 Extremities: +2 pulses bilaterally radialis/ dorsalis pedis, no cyanosis, no edema Neuro: Awake alert oriented x3 Psych: Normal mood and affect G/U: No M[place] Skin: no rashes, warm and dry Lymphatic: no cervical or axillary lymphadenopathy Results & Data Results & Data ([facility]) Vital Signs (Past 12 Hours) Vital Signs Temp Pulse Pulse Resp BP Pulse Ox 10/25/21 11:39 37 C 60 18 108/61 98 10/25/21 10:00 52 L 10/25/21 07:13 36.8 C 70 16 113/71 98 10/25/21 04:00 36.4 C L 56 L 18 117/76 96 Laboratory Results 10/24/21 07:05 10/24/21 07:05 PG Care Time/CCT Total # of Minutes Spent Total Time Spent with Patient: Total time spent is greater than 50% in coordination of care (as documented) at patient's floor/unit and/or counseling patient: Coding Level of Care Code 61316 Subseq Hosp Care Lvl 2 Diagnoses Spontaneous pneumothorax J93.83 Chest pain R07.9
--- NOTE | 2021-10-25 15:25 | Hospitalist Progress Note ---
Date of Service October 25, 2021 Assessment & Plan (1) Spontaneous pneumothorax: Plan: Patient is a 21 yr male who presents with right pneumothorax. Right apical Spontaneous Pneumothorax S/P Chest tube --Chest CT:There is a small residual right apical to basilar pneumothorax with a chest tube in place as above. Numerous tiny blebs are present at both apices. Trace right pleural effusion. The lungs are otherwise clear. Pain Control Appreciate Pulmonology Input Continue chest tube Patient should avoid flying for at least 2 weeks, no scuba diving recommended Chest tube clamped>>> increased creatinine pneumothorax size Mildly improved pneumothorax, but persistent despite continuing chest tube with suction Needs transfer to Tertiary care facility for VATS Patient is accepted by CT surgeon Dr.Pauline ESPINOZA at [facility] for further management Patient/family agrees with the transfer and understands the condition. All questions answered. Agrees with current management. DVT Px: SCDs Code Status Full Code Admission and Anticipated Discharge Date Admission Date: October 21, 2021 Subjective Patient seen and examined at bedside. No acute distress, no new issues overnight. No new complaints Mild soreness at chest tube site and mild pleuritic pain Discussed with pulmonology today Saturating well on room air Offers no other complaints Review of Systems Review of Systems: All systems reviewed & are unremarkable except as noted in Subjective Physical Exam Physical Exam: Physical Exam: Vitals signs as noted above General Appearance:Thin, no apparent distress Head: normocephalic, Atraumatic Eyes: normal inspection, EOMI Neck: supple, Trachea midline Respiratory/Chest: Decreased breath sounds, CTA, No accessory muscle use, +Chest Tube Cardiovascular: S1, S2, No murmur Abdomen/GI:Soft, Non tender, Bowel sounds present Extremities/Musculoskeletal:normal inspection, no edema Neurologic/Psych:AAOX3, grossly no focal neurological deficits Skin: normal color, warm Results & Data Results & Data ([facility]) Vital Signs (Past 12 Hours) Vital Signs Temp Pulse Pulse Resp BP BP Pulse Ox 10/25/21 14:39 36.9 C 61 16 109/62 98 10/25/21 11:39 37 C 60 18 108/61 98 10/25/21 10:00 52 L 10/25/21 07:13 36.8 C 70 16 113/71 98 10/25/21 04:00 36.4 C L 56 L 18 117/76 96
--- NOTE | 2021-10-25 15:31 | Discharge Summary ---
Date of Service October 25, 2021 Admission HPI Per Admitting Provider CHIEF COMPLAINT: Pneumothorax. HISTORY OF PRESENT ILLNESS: This is a 21-year-old male with no significant past medical history, presents with shortness of breath. The patient was hiking when he felt short of breath and chest discomfort, and was brought in here and found to have right apical pneumothorax. Never had these in the past. The patient is status post chest tube in the ER. Repeat CT scan shows small residual right apical pneumothorax with chest tube in place. ER talked to pulmonary, wanted to keep him overnight in the hospital and repeat chest x-ray in the a.m. Currently, the patient has some pain at the chest tube site, shortness of breath is improved. No other complaints. Denies any headache. No blurred visions, no earache, no runny nose, no sore throat, no cough, no fevers. No nausea, no abdominal pain, normal bowel and bladder movements. Otherwise, active. Admission Exam Per Admitting Provider PHYSICAL EXAMINATION: GENERAL: The patient is of moderate build, not in acute distress. VITAL SIGNS: Temperature 36.6, pulse 93, respiratory rate 20, blood pressure 145/85, oxygen 100% on room air. HEENT: Pupils equal, round and reactive to light. Oral mucosa moist. NECK: No JVD, no neck masses. CARDIOVASCULAR: S1 and S2 heard. Regular rate and rhythm. No murmur, no gallop. RESPIRATORY SYSTEM: Normal AP diameter. No accessory muscle use. No wheezing, no crackles. ABDOMEN: Soft. Bowel sounds are present, nontender, no distention. CENTRAL NERVOUS SYSTEM: Cranial nerves II through XII are grossly intact, nonfocal. EXTREMITIES: No edema, no erythema. Principal Diagnosis Right apical Spontaneous Pneumothorax Discharge Data Allergies Allergy/AdvReac Type Severity Reaction Status Date / Time amoxicillin Allergy Intermediate HIVES Verified 10/21/21 18:27 AN INFANT pollen extracts Allergy Intermediate ITCHY Verified 10/21/21 18:27 EYES, SNEEZING, CONGESTION Consultations 10/21/21 18:21 Consult Pulmonology Routine 10/21/21 19:54 ED Decision to Admit Stat 10/25/21 15:29 Burn CD for patient Routine Ordered Studies 10/21/21 17:50 CT chest diagnostic wo con Stat Hospital Course (1) Spontaneous pneumothorax: Patient is a 21 yr male who presents with right pneumothorax. Right apical Spontaneous Pneumothorax S/P Chest tube --Chest CT:There is a small residual right apical to basilar pneumothorax with a chest tube in place as above. Numerous tiny blebs are present at both apices. Trace right pleural effusion. The lungs are otherwise clear. Pain Control Appreciate Pulmonology Input Continue chest tube Patient should avoid flying for at least 2 weeks, no scuba diving recommended Chest tube clamped>>> increased creatinine pneumothorax size Mildly improved pneumothorax, but persistent despite continuing chest tube with suction Needs transfer to Tertiary care facility for VATS Patient is accepted by CT surgeon Dr.Pauline ESPINOZA at [facility] for further management Patient/family agrees with the transfer and understands the condition. All questions answered. Agrees with current management. DVT Px: SCDs Code Status Full Code Total Time Total Time Spent Total Time Spent (In Minutes): 40 minutes Discharge Plan Discharge Items Patient Disposition: Transfer Acute Care Hospital Reason For Visit: SOB Discharge Diagnosis: Right apical Spontaneous Pneumothorax Activity: Per Instructions section Exercise/Sports: Wait until after follow-up appointment Non-emergency contact: Primary Care Provider and Surgeon Call non-emergency contact if: you have any medication questions, your symptoms worsen, your pain is concerning for you and you have a fever Follow-up/Referrals: PCP,NO [Primary Care Provider] - Diet: Regular Addtl Attending Provider Instructions: Follow-up with your primary care physician in 1 week upon discharge from [facility] Follow-up with your CT surgeon Dr.Pauline ESPINOZA at [place] for further management of pneumothorax. Seek immediate medical attention if your symptoms reoccur or worsen Please take all medications as instructed on discharge list below. Please call if you have any questions or problems. You can reach a [facility] hospitalist on duty at [facility] 24 hours a day by calling [phone] Pending Studies at Discharge: No Stand-Alone Forms: [facility] Skilled Items Patient informed of condition?: Yes DNR: No Discharge Level of Care: Other Communicable Disease: No Discharge Prognosis: Stable Lines: None Urinary Catheter: No Medications and DC Order Prescriptions: Continued spironolactone 100 mg tablet 100 mg PO HS RF: 0 fexofenadine [Simin] 180 mg Tablet 180 mg PO DAILY RF: 0 estradiol 2 mg tablet 2 mg PO HS RF: 0 Discharge Orders: Discharge Order (Routine); Ordered 10/25/21 Ordered By: Omid Solis Admission Data Admit Date/Time: 10/21/21 22:17 Attending Provider: Omid Solis Admit Provider: Rachid Valdez Primary Care Provider: PCP,NO Other Providers: Ulysses Milton ; Rachid Valdez
[2021-10-25] MEDS: SPIRONOLACTONE 100 MG TAB PO SCH (20:21)
[2021-10-25] MEDS: ACETAMINOPHEN 325 MG TAB PO PRN (20:21)
[2021-10-25] MEDS: estradioL 1 MG TAB PO SCH (20:21)
== END 2021-10-25 23:21 | disposition short-term general hospital (02) | DRG 201 ==
LOC: ED 15:26 → EDINP 22:17 → 2W 23:59